=== PATIENT | male | born 1940 | race Caucasian/White ===

== ENCOUNTER 2021-07-18 07:43 | Day surgery (SDC) | payer MEDICARE, MEDICAID ==
[2021-07-18] MEDS ORDERED: Dexamethasone 4 MG/ML SDV IV ONE (07:44)
[2021-07-18] MEDS ORDERED: Sodium Chloride 0.9% 10 ML Syringe IV ONE (07:44)
[2021-07-18] MEDS ORDERED: Midazolam 1 MG/ML 2 ML SDV IV ONE (07:44)
[2021-07-18] MEDS ORDERED: Acetaminophen/Codeine 300-30 MG Tab PO PRN (08:00)
[2021-07-18] MEDS ORDERED: Moxifloxacin 0.5% Ophth Soln 3 ML Bottle EYELF ONE (08:00)
[2021-07-18] MEDS ORDERED: Acetaminophen 325 MG Tab PO PRN (08:00)
[2021-07-18] MEDS ORDERED: Proparacaine 0.5% Ophth Soln 15 ML Bottle EYELF ONE (08:00)
[2021-07-18] MEDS ORDERED: Timolol Maleate 0.5% Ophth Soln 5 ML Bottle EYELF ONE (08:00)
[2021-07-18] MEDS ORDERED: Sodium Chloride 0.9% 10 ML Syringe FLUSH PRN (08:00)
[2021-07-18] MEDS ORDERED: Cataract Ophth Solution EYELF ONE (08:00)
[2021-07-18] MEDS ORDERED: Phenylephrine 10% Ophth Soln 5 ML Bot EYELF ONE (08:00)
[2021-07-18] MEDS ORDERED: Ondansetron 4 MG/2 ML SDV IVPUSH PRN (08:00)
[2021-07-18] MEDS ORDERED: Tropicamide 1% Ophth Soln 15 ML Bottle EYELF ONE (08:00)
[2021-07-18] MEDS ORDERED: Povidone-Iodine 5% Sterile Ophth Soln 30 ML Bottle EYELF ONE ×2 (08:00→08:59)
[2021-07-18] MEDS ORDERED: Apraclonidine 0.5% Ophth Soln 5 ML Bot EYELF ONE (08:59)
[2021-07-18] MEDS ORDERED: Tetracaine HCl/PF 0.5% 4 ML Bottle EYELF ONE (08:59)
[2021-07-18] MEDS ORDERED: Lidocaine 1% 30 ML SDV ONE (08:59)
[2021-07-18] MEDS ORDERED: Dexamethasone/Neomycin/Polymyxin B Ophth Oint 3.5 GM Tube EYELF ONE (09:00)
[2021-07-18] MEDS ORDERED: Vancomycin 500 MG SDV EYELF ONE (09:00)
[2021-07-18] MEDS ORDERED: Balanced Salt Solution Ophth Irrig 500 ML Bottle IOCULAR ONE (09:00)
[2021-07-18] MEDS ORDERED: Diclofenac Sodium 0.1% Ophth Soln 5 ML Bottle EYELF ONE (09:00)
[2021-07-18] MEDS ORDERED: Chondroitin Sulfate/Hyaluronate Sodium Ophth Inj 0.5 ML Syringe IOCULAR ONE (09:01)
[2021-07-18 09:57] VITALS: BP 163/88; PULSE 67
== END 2021-07-18 10:10 | disposition home or self-care (01) ==
LOC: DL.SDS 07:43
PROVIDERS: ATTEND Ophthalmology
DX: H25.812 Combined forms of age-related cataract, left eye (principal); K21.9 Gastro-esophageal reflux disease without esophagitis; I12.9 Hypertensive chronic kidney disease with stage 1 through stage 4 chronic kidney disease, or unspecified chronic kidney disease; E78.2 Mixed hyperlipidemia; N18.30 Chronic kidney disease, stage 3 unspecified; R73.03 Prediabetes; Z86.73 Personal history of transient ischemic attack (TIA), and cerebral infarction without residual deficits; Z98.890 Other specified postprocedural states; Z87.891 Personal history of nicotine dependence; Z79.899 Other long term (current) drug therapy
CPT/HCPCS: 00142; A9270-GY; J1100; J2250; J3370; J3490; V2632

== ENCOUNTER → 2021-08-15 | Day surgery (SDC) | payer MEDICARE, MEDICAID ==
[~2021-08-15] MED LIST: Acetaminophen 325 MG Tab PO PRN; Acetaminophen/Codeine 300-30 MG Tab PO PRN; Apraclonidine 0.5% Ophth Soln 5 ML Bot EYERT ONE; Balanced Salt Solution Ophth Irrig 500 ML Bottle IOCULAR ONE; Cataract Ophth Solution EYERT ONE; Chondroitin Sulfate/Hyaluronate Sodium Ophth Inj 0.5 ML Syringe IOCULAR ONE; Dexamethasone 4 MG/ML SDV IV ONE; Dexamethasone/Neomycin/Polymyxin B Ophth Oint 3.5 GM Tube EYERT ONE; Diclofenac Sodium 0.1% Ophth Soln 5 ML Bottle EYERT ONE; Lidocaine 1% 30 ML SDV ONE; Midazolam 1 MG/ML 2 ML SDV IV ONE; Moxifloxacin 0.5% Ophth Soln 3 ML Bottle EYERT ONE; Ondansetron 4 MG/2 ML SDV IVPUSH PRN; Phenylephrine 10% Ophth Soln 5 ML Bot EYERT ONE; Povidone-Iodine 5% Sterile Ophth Soln 30 ML Bottle EYERT ONE; Proparacaine 0.5% Ophth Soln 15 ML Bottle EYERT ONE; Proparacaine 0.5% Ophth Soln 15 ML Bottle ONE; Sodium Chloride 0.9% 10 ML Syringe FLUSH PRN; Sodium Chloride 0.9% 10 ML Syringe IV ONE; Tetracaine HCl/PF 0.5% 4 ML Bottle EYERT ONE; Timolol Maleate 0.5% Ophth Soln 5 ML Bottle EYERT ONE; Tobramycin 0.3% Ophth Drops 5 ML Bottle EYERT SCH; Tropicamide 1% Ophth Soln 15 ML Bottle EYERT ONE; Vancomycin 500 MG SDV EYERT ONE
[2021-08-15 11:55] VITALS: BP 149/79; PULSE 80
== END ==
LOC: DL.SDS 07:57
PROVIDERS: ATTEND Ophthalmology
DX: H25.811 Combined forms of age-related cataract, right eye (principal); N18.30 Chronic kidney disease, stage 3 unspecified; I12.9 Hypertensive chronic kidney disease with stage 1 through stage 4 chronic kidney disease, or unspecified chronic kidney disease; E78.2 Mixed hyperlipidemia; R73.03 Prediabetes; Z87.891 Personal history of nicotine dependence; Z98.890 Other specified postprocedural states; Z79.899 Other long term (current) drug therapy; Z86.73 Personal history of transient ischemic attack (TIA), and cerebral infarction without residual deficits
CPT/HCPCS: 00142; 66984; A9270; J1100; J2250; J3370; J3490; V2632

== ENCOUNTER 2024-08-26 02:12 | Emergency (ER) | payer MEDICARE, MEDICAID ==
[2024-08-26 00:52] LABS: BASOPHILS PERCENT AUTO 0.3 % (0.0-1.0); EOSINOPHILS PERCENT AUTO 3.1 % (1.0-3.0); LYMPHOCYTES PERCENT AUTO 35.9 % (20.5-50.1); MONOCYTES PERCENT AUTO 10.9 % (2-8); NEUTROPHILS PERCENT AUTO 49.8 % (42.2-75.2); PLATELET COUNT,PLT 159 10^3/uL (150-450); RED BLOOD CELL COUNT 4.27 10^6/uL (4.6-6.2); WHITE BLOOD CELL COUNT,WBC 9.4 10^3/uL (5.0-10.0)
[2024-08-26 00:55] LABS: APPEARANCE,URINE CLEAR (CLEAR); GLUCOSE,URINE NEGATIVE (NEGATIVE); OCCULT BLOOD,URINE NEGATIVE (NEGATIVE)
[2024-08-26 01:13] LABS: A/G RATIO 0.9; ALANINE AMINOTRANSFERASE,ALT 17.0 U/L (16-63); ASPARTATE AMNIOTRANSFERASE,AST 14.0 U/L (15-37); BILIRUBIN TOTAL 0.5 mg/dL (0.2-1.0); BLOOD UREA NITROGEN,BUN 28.0 mg/dL (7-18); CARBON DIOXIDE,CO2 31.0 mmol/L (21-32); CHLORIDE,CL 97.0 mmol/L (98-107); CREATININE 1.77 mg/dL (0.70-1.30); EST CRCL DRUG DOSING (CG) 32.5 mL/min; GLUCOSE RANDOM 130.0 mg/dL (70-99); PROTEIN TOTAL,TP 7.2 g/dL (6.4-8.2); SODIUM,NA 134.0 mmol/L (136-145)
[2024-08-26 01:16] LABS: EPITHELIAL CELLS,URINE RARE /HPF (NOT SEEN)
[2024-08-26 01:18] LABS: LACTIC ACID 2.1 mmol/L (0.4-2.0)
[2024-08-26 01:20] LABS: POTASSIUM,K 4.1 mmol/L (3.5-5.1)
[2024-08-26 01:21] LABS: ESTIMATED GFR 37.0 mL/min (>=60)
[2024-08-26 02:43] VITALS: PULSE 66
[2024-08-26 02:48] VITALS: BP 118/66
== END 2024-08-26 02:37 | disposition home or self-care (01) ==
LOC: DL.ED 02:12
DX: K59.00 Constipation, unspecified (principal); E86.0 Dehydration; K21.9 Gastro-esophageal reflux disease without esophagitis; E78.00 Pure hypercholesterolemia, unspecified; I10 Essential (primary) hypertension; Z86.73 Personal history of transient ischemic attack (TIA), and cerebral infarction without residual deficits; Z79.899 Other long term (current) drug therapy
CPT/HCPCS: 36415; 74019; 80053; 81001; 83605; 85025; 96360; 99284; A9270; J7030

== ENCOUNTER 2024-12-22 21:26 | Emergency (ER) | payer MEDICARE, MEDICAID ==
[2024-12-22] MEDS: fentaNYL 100 MCG/2 ML SDV IVPUSH ONE (23:16)
[2024-12-22 23:51] VITALS: BP 133/92
[2024-12-22 23:52] VITALS: PULSE 66
== END 2024-12-22 23:24 ==
LOC: DL.ED 21:26
DX: S72.142A Displaced intertrochanteric fracture of left femur, initial encounter for closed fracture (principal); E78.00 Pure hypercholesterolemia, unspecified; K21.9 Gastro-esophageal reflux disease without esophagitis; I12.9 Hypertensive chronic kidney disease with stage 1 through stage 4 chronic kidney disease, or unspecified chronic kidney disease; N18.9 Chronic kidney disease, unspecified; Z86.73 Personal history of transient ischemic attack (TIA), and cerebral infarction without residual deficits; Z79.899 Other long term (current) drug therapy; W18.39XA Other fall on same level, initial encounter; Y93.89 Activity, other specified
CPT/HCPCS: 73502; 96374; 99285; J3010

== ENCOUNTER 2025-01-25 13:28 | Observation (INO) | payer MEDICARE, MEDICAID ==
[2025-01-25] MEDS: fentaNYL 100 MCG/2 ML SDV IVPUSH ONE (13:55)
[2025-01-25] MEDS: Metoprolol Tartrate 5 MG/5 ML SDV IVPUSH ONE (14:10)
[2025-01-25] MEDS: Furosemide 40 MG/4 ML VIAL IVPUSH ONE (14:11)
[2025-01-25 14:18] LABS: BASOPHILS PERCENT AUTO 0.3 % (0.0-1.0); EOSINOPHILS PERCENT AUTO 0.5 % (1.0-3.0); LYMPHOCYTES PERCENT AUTO 11.8 % (20.5-50.1); MONOCYTES PERCENT AUTO 9.9 % (2-8); NEUTROPHILS PERCENT AUTO 77.5 % (42.2-75.2); PLATELET COUNT,PLT 218 10^3/uL (150-450); RED BLOOD CELL COUNT 4.09 10^6/uL (4.6-6.2); WHITE BLOOD CELL COUNT,WBC 12.8 10^3/uL (5.0-10.0)
[2025-01-25 14:34] LABS: INR 1.0 (0.9-1.2)
[2025-01-25 14:38] LABS: B-TYPE NATRIURETIC PEPTIDE,BNP 93 pg/ml (0-100)
[2025-01-25 14:41] LABS: ALANINE AMINOTRANSFERASE,ALT 12 U/L (16-63); ASPARTATE AMNIOTRANSFERASE,AST 18 U/L (15-37); BILIRUBIN TOTAL 1.1 mg/dL (0.2-1.0); BLOOD UREA NITROGEN,BUN 19 mg/dL (7-18); CARBON DIOXIDE,CO2 26 mmol/L (21-32); CHLORIDE,CL 98 mmol/L (98-107); CREATININE 1.43 mg/dL (0.70-1.30); EST CRCL DRUG DOSING (CG) 37.13 mL/min; GLUCOSE RANDOM 137 mg/dL (70-99); LACTIC ACID 1.9 mmol/L (0.4-2.0); POTASSIUM,K 4.4 mmol/L (3.5-5.1); PROTEIN TOTAL,TP 7.5 g/dL (6.4-8.2); SODIUM,NA 136 mmol/L (136-145)
[2025-01-25 14:42] LABS: A/G RATIO 0.74; ESTIMATED GFR 48 mL/min (>=60)
[2025-01-25 17:55] LABS: CREATINE KINASE,CK 104 U/L (39-308); GAMMA GLUTAMYL TRANSFERASE,GGT 49 U/L (15-85)
[2025-01-25 20:34] LABS: APPEARANCE,URINE CLEAR (CLEAR); GLUCOSE,URINE NEGATIVE (NEGATIVE); OCCULT BLOOD,URINE NEGATIVE (NEGATIVE)
[2025-01-25] MEDS: Heparin Sodium 5,000 Units/ML Vial SUBCUT SCH (22:01)
[2025-01-26 06:19] LABS: BASOPHILS PERCENT AUTO 0.5 % (0.0-1.0); EOSINOPHILS PERCENT AUTO 3.5 % (1.0-3.0); LYMPHOCYTES PERCENT AUTO 27.0 % (20.5-50.1); MONOCYTES PERCENT AUTO 13.5 % (2-8); NEUTROPHILS PERCENT AUTO 55.5 % (42.2-75.2); PLATELET COUNT,PLT 193 10^3/uL (150-450); RED BLOOD CELL COUNT 3.34 10^6/uL (4.6-6.2); WHITE BLOOD CELL COUNT,WBC 7.4 10^3/uL (5.0-10.0)
[2025-01-26 06:27] LABS: ALANINE AMINOTRANSFERASE,ALT 9.0 U/L (16-63); ASPARTATE AMNIOTRANSFERASE,AST 13.0 U/L (15-37); BILIRUBIN DIRECT 0.2 mg/dL (0.0-0.2); BILIRUBIN INDIRECT 0.7; BILIRUBIN TOTAL 0.9 mg/dL (0.2-1.0); BLOOD UREA NITROGEN,BUN 19.0 mg/dL (7-18); CARBON DIOXIDE,CO2 27.0 mmol/L (21-32); CHLORIDE,CL 102.0 mmol/L (98-107); CREATININE 1.38 mg/dL (0.70-1.30); EST CRCL DRUG DOSING (CG) 41.68 mL/min; GLUCOSE RANDOM 87.0 mg/dL (70-99); PHOSPHORUS 3.4 mg/dL (2.6-4.7); POTASSIUM,K 4.0 mmol/L (3.5-5.1); PROTEIN TOTAL,TP 6.0 g/dL (6.4-8.2); SODIUM,NA 137.0 mmol/L (136-145)
[2025-01-26 06:29] LABS: A/G RATIO 0.71; ESTIMATED GFR 50.0 mL/min (>=60)
[2025-01-26] MEDS: Sennosides/Docusate Sodium 50-8.6 MG Tab PO SCH (08:59)
[2025-01-27 05:54] LABS: BASOPHILS PERCENT AUTO 0.4 % (0.0-1.0); EOSINOPHILS PERCENT AUTO 3.3 % (1.0-3.0); LYMPHOCYTES PERCENT AUTO 25.0 % (20.5-50.1); MONOCYTES PERCENT AUTO 14.8 % (2-8); NEUTROPHILS PERCENT AUTO 56.5 % (42.2-75.2); PLATELET COUNT,PLT 178 10^3/uL (150-450); RED BLOOD CELL COUNT 3.22 10^6/uL (4.6-6.2); WHITE BLOOD CELL COUNT,WBC 7.1 10^3/uL (5.0-10.0)
[2025-01-27 06:10] LABS: BLOOD UREA NITROGEN,BUN 19.0 mg/dL (7-18); CARBON DIOXIDE,CO2 27.0 mmol/L (21-32); CHLORIDE,CL 103.0 mmol/L (98-107); CREATININE 1.3 mg/dL (0.70-1.30); EST CRCL DRUG DOSING (CG) 44.25 mL/min; GLUCOSE RANDOM 101.0 mg/dL (70-99); POTASSIUM,K 4.3 mmol/L (3.5-5.1); SODIUM,NA 138.0 mmol/L (136-145)
[2025-01-27 06:17] LABS: ESTIMATED GFR 54.0 mL/min (>=60)
[2025-01-27 10:13] VITALS: BP 107/63; PULSE 75
== END 2025-01-27 10:15 | disposition swing bed (61) ==
LOC: DL.ED 13:28 → DL.MS 16:20
PROVIDERS: ADMIT Internal Medicine; ATTEND Internal Medicine
DX: R53.81 Other malaise (principal); E86.0 Dehydration; N17.9 Acute kidney failure, unspecified; I12.9 Hypertensive chronic kidney disease with stage 1 through stage 4 chronic kidney disease, or unspecified chronic kidney disease; N18.30 Chronic kidney disease, stage 3 unspecified; E87.20 Acidosis, unspecified; D72.829 Elevated white blood cell count, unspecified; R79.89 Other specified abnormal findings of blood chemistry; E78.5 Hyperlipidemia, unspecified; K21.9 Gastro-esophageal reflux disease without esophagitis; R62.50 Unspecified lack of expected normal physiological development in childhood; F41.9 Anxiety disorder, unspecified; E66.9 Obesity, unspecified; D50.9 Iron deficiency anemia, unspecified; Z79.82 Long term (current) use of aspirin; Z79.899 Other long term (current) drug therapy
CPT/HCPCS: 36415; 71045; 73501; 73502; 80048; 80053; 80076; 81003; 82550; 82947; 82977; 83605; 83735; 83880; 84100; 84145; 84484; 85025; 85610; 93005; 93010; 93971; 96361; 96374; 96375; 97161; 97165; 99223; 99232; 99239; 99284; 99285; A9270; J0616; J1644; J1938; J3010; J7030; 96372; G0378